=== PATIENT | female | born 1985 | race Caucasian/White ===

== ENCOUNTER 2021-08-10 11:57 | Inpatient (IN) ==
[2021-08-10 13:36] LABS: Mean Corpuscular Hgb Conc 34.8 g/dL (32-36)
[2021-08-10 13:44] LABS: Hematocrit (blood only) 36.8 % (37-47); Hemoglobin 12.8 g/dL (12.0-16.0); Mean Corpuscular Hemoglobin 32.2 pg (25-34); Mean Corpuscular Volume 92.5 fL (80-100); RDW Coefficient of Variation 13.1 % (11.5-14.5); RDW Standard Deviation 44.2 fL (36.4-46.3); Red Blood Count 3.98 M/uL (4.2-5.4); White Blood Count 6.27 K/uL (4.8-10.8)
[2021-08-10] MEDS ORDERED: OXYTOCIN 30 UNITS/500 ML BAG IV PRN ×2 (13:47)
[2021-08-10 13:53] LABS: Mean Platelet Volume 13.1 fL (7.4-10.4); Platelet Count 137 K/uL (130-400); Platelet Estimate Normal (Normal)
[2021-08-10 13:55] LABS: Albumin Level 2.4 gm/dl (3.4-5.0); BUN Creatinine Ratio 9.3 (10-20); Calcium 8.5 mg/dl (8.5-10.1); Creatinine Clr Calc Pharmacy 86.5 ml/min; Est GFR (African American) 82.5 ml/min; Est GFR (Non-African American) 71.2 ml/min; Potassium 3.9 mmol/L (3.5-5.1)
[2021-08-10 13:58] LABS: Albumin Globulin Ratio 0.7 (0.9-2); Bilirubin,Total 0.3 mg/dl (0.2-1); Globulin 3.4 gm/dl (2.5-4.0); Total Protein 5.8 gm/dl (6.4-8.2)
--- NOTE | 2021-08-10 14:06 | Anesthesiology Consultation ---
Date of Service August 10, 2021 Assessment & Plan Chart Review Chart Review: Acceptable Risk for Surgery, Patient NOT seen in Pre Admission Testing and Acceptable Risk for Labor Epidural Consults Requested none ASA ASA2 Proposed Anesthesia Anesthesia Type: Labor Epidural and CSE History Height/Weight Height: 5 ft 8 in Weight: 82.1 kg Allergies Allergy/AdvReac Type Severity Reaction Status Date / Time No Known Allergies Allergy Verified 08/10/21 13:01 Medications Home Medications Medication Instructions Recorded Confirmed Last Taken loratadine 10 mg tablet (Claritin) 10 mg PO DAILY 08/06/21 08/10/21 08/10/21 09:00 cyanocobalamin (vitamin B-12) 1,000 mcg PO Q OTHER DAY 08/10/21 08/10/21 08/10/21 09:00 1,000 mcg tablet (Vitamin B-12) prenat.vits,ilsa,yln-vrvk-agtuv 1 tab PO DAILY 08/10/21 08/10/21 08/10/21 09:00 Past Medical History Medical History History of chicken pox HPV test positive Vitamin B12 deficiency Exercise / Class Metabolic Activity II 4-5 Yardwork/Stairs/Walk up hill Past Family History Family History Mother Hypertension Early onset Alzheimer's dementia Seizures Grandmother (Maternal) Diabetes Grandfather (Paternal) Myocardial infarction Aunt Cancer of appendix Denies family history of Ovarian cancer Prostate cancer Breast cancer Colorectal cancer Past Surgical History Surgical History History of colposcopy History of repair of ACL Past Anesthesia History No Hx of Anesthesia Complications and No Family Hx of Anesthesia Complications History of PONV No Hx of PONV and No Hx of Motion Sickness Social History Smoking Status: Never smoker Hx Alcohol Use: No Hx Substance Use: No Physical Exam Vital Signs Last Vital Signs Temp 36.9 C 08/10/21 12:22 Pulse 61 08/10/21 13:02 Resp 20 08/10/21 12:22 BP 142/101 H 08/10/21 13:02 Testing Laboratory Results 08/10/21 13:24 08/10/21 13:24
[2021-08-10] MEDS: LACTATED RINGER'S 1,000 ML IV PRN ×2 (15:18→21:02)
--- NOTE | 2021-08-10 16:16 | History & Physical Report ---
Date of Service August 10, 2021 Assessment & Plan (1) PROM (premature rupture of membranes): (2) Gestational hypertension: (3) Elderly primigravida: (4) Velamentous insertion of umbilical cord: Plan: admit, iv, labs. monitor bps, if severe range will plan magnesium sulfate, discussed dx with patient and risks. rec pitocin for induction of labor. answered questions to the best of my ability and to their satisfaction, both pt and partner. agree to proceed with pitocin. Admission and Anticipated Discharge Date Admission Date: August 10, 2021 History of Present Illness Chief Complaint: Leaking fluid since 8am, clear. Primary Care Provider: NO PCP 36yo at 38+wks ega presents to L&D with cc of leaking fluid since 8am and advised to come to L&D for evaluation. Noting cramping as well. On arrival here, bp elevated. Denies angel, visual change, ruq pain. No n/v. +FM. some pink d/c. clear fluid leak with white flecks. PNC c/b 1. ama 2. velamentous cord insertion, growth us followed, aga PNL rh pos, ri, gbs neg OBH: g1 GYNH: nl paps no stds Allergies Allergy/AdvReac Type Severity Reaction Status Date / Time No Known Allergies Allergy Verified 08/10/21 13:01 Home Medications Medication Instructions Recorded Confirmed Type loratadine 10 mg tablet (Claritin) 10 mg PO DAILY 08/06/21 08/10/21 History cyanocobalamin (vitamin B-12) 1,000 mcg PO Q OTHER DAY 08/10/21 08/10/21 History 1,000 mcg tablet (Vitamin B-12) prenat.vits,ilsa,wao-bjma-lmrja 1 tab PO DAILY 08/10/21 08/10/21 History Patient History Medical History History of chicken pox HPV test positive Vitamin B12 deficiency Surgical History History of colposcopy History of repair of ACL Family History Mother Hypertension Early onset Alzheimer's dementia Seizures Grandmother (Maternal) Diabetes Grandfather (Paternal) Myocardial infarction Aunt Cancer of appendix Denies family history of Ovarian cancer Prostate cancer Breast cancer Colorectal cancer Social History (Updated 01/07/21 @ 10:02 by Jane Vasquez RN) Smoking Status: Never smoker Hx Alcohol Use: No Hx Substance Use: No Preferred Language: Nepali Communication Ability: Effective Fire Regulator Required: No Beliefs That Will Affect Care: None marital status: marital status details: Norman Pinedo ([phone] Current Living Situation: Spouse Current Living Situation Comment: current occupational status: employed 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 Other Information That Helps Us Care for You: No Feels Safe at Home: Yes Safety Concerns: Feels Safe At This Time Review of Systems as per Subjective / HPI Physical Exam Constitutional: WD/WN, vitals as above Gastrointestinal (Abdomen): soft gravid nt Musculoskeletal: no edema nontender calves Neurologic: grossly normal DTRs +2-+3 patellar, no clonus Psychiatric: A+Ox3, euthymic affect Genitourinary: OB Exam Abdomen: + vertex (by u/s) Manual OB Exam: + cervical dilation 4 cm, + cervical effacement 100%, + station -1 and + amniotic fluid clear, nitrazine positive and ferning present OB Exam Monitor Tracing: + external FHT monitor used, + external uterine monitor used (irreg), + category I and + normal FHT variability Results & Data ([facility]) Vital Signs (Past 12 Hours) Vital Signs Temp Pulse Resp BP 08/10/21 15:24 61 163/102 H 08/10/21 15:08 60 155/98 H 08/10/21 14:39 57 L 152/95 H 08/10/21 13:02 61 142/101 H 08/10/21 12:32 62 152/99 H 08/10/21 12:22 98.4 F 20 08/10/21 12:17 62 164/102 H Coding Level of Care Code None Diagnoses PROM (premature rupture of membranes) O42.90 Gestational hypertension O13.9 Elderly primigravida O09.519 Velamentous insertion of umbilical cord O43.129
[2021-08-10] MEDS ORDERED: MAG SULFATE 4GM BOLUS FROM BAG IV ONE (16:45)
[2021-08-10] MEDS: MAGNESIUM SULFATE / WTR 40 GM/1,000 ML BAG IV SCH (16:55)
[2021-08-10] MEDS ORDERED: LABETALOL HCL IV 5 MG/ML 20ML IV STA ×2 (17:04→19:16)
[2021-08-10] MEDS ORDERED: hydrALAZINE HCL 20 MG/ML VIAL IV STA ×2 (19:24→19:56)
--- NOTE | 2021-08-10 19:28 | Labor Progress Brief Note ---
Date of Service August 10, 2021 Subjective pt with pain with ctx. denies angel Assessment & Plan (1) PROM (premature rupture of membranes): (2) Gestational hypertension: (3) Elderly primigravida: Plan: mag was started earlier for severe features, creat 1.02 and bps have been elevated as well, 20mg iv labetalol prev given, pulse hovers at 45-60. will add hydralazine next. good progress. c/w pit. fhts categ 1 Admission and Anticipated Discharge Date Admission Date: August 10, 2021 Physical Exam Constitutional: WD/WN, vitals as above Genitourinary: Manual OB Exam: + cervical dilation 7 cm, + cervical effacement 100% and + station 0 OB Exam Monitor Tracing: + external FHT monitor used, + external uterine monitor used (q2-3 ), + category I and + normal FHT variability Results & Data ([facility]) Vital Signs (Past 12 Hours) Vital Signs Temp Pulse Resp BP Pulse Ox 08/10/21 19:20 64 163/110 H 96 08/10/21 19:15 59 L 148/106 H 95 08/10/21 19:12 59 L 170/108 H 08/10/21 19:10 57 L 98 08/10/21 19:05 53 L 160/97 H 96 08/10/21 19:00 64 149/98 H 97 08/10/21 18:59 62 94 08/10/21 18:55 69 157/105 H 97 08/10/21 18:54 75 94 08/10/21 18:50 69 95 08/10/21 18:45 62 96 08/10/21 18:40 65 96 08/10/21 18:35 66 95 08/10/21 18:30 97.9 F 64 20 95 08/10/21 18:25 67 98 08/10/21 18:24 71 168/98 H 08/10/21 18:20 70 100 08/10/21 18:15 61 100 08/10/21 18:10 62 167/103 H 97 08/10/21 18:05 65 94 08/10/21 18:00 68 20 98 08/10/21 17:55 71 97 08/10/21 17:54 59 L 149/97 H 08/10/21 17:50 63 98 08/10/21 17:45 57 L 97 08/10/21 17:43 59 L 94 08/10/21 17:40 56 L 98 08/10/21 17:39 60 155/96 H 08/10/21 17:35 59 L 100 08/10/21 17:30 55 L 98 08/10/21 17:26 65 152/95 H 08/10/21 17:25 64 98 08/10/21 17:21 69 94 08/10/21 17:20 62 96 08/10/21 17:17 57 L 148/99 H 08/10/21 17:15 57 L 96 08/10/21 17:10 65 97 08/10/21 17:09 54 L 161/100 H 08/10/21 17:07 59 L 94 08/10/21 17:05 64 96 08/10/21 17:03 63 161/95 H 08/10/21 17:00 58 L 95 08/10/21 16:57 60 190/113 H 08/10/21 16:55 20 08/10/21 16:40 97.7 F 08/10/21 16:25 76 182/92 H 08/10/21 16:21 58 L 146/87 H 08/10/21 15:24 61 163/102 H 08/10/21 15:08 60 155/98 H 08/10/21 14:39 57 L 152/95 H 08/10/21 14:30 98.1 F 20 08/10/21 13:02 61 142/101 H 08/10/21 12:32 62 152/99 H 08/10/21 12:22 98.4 F 08/10/21 12:17 62 164/102 H Coding Level of Care Code None Diagnoses PROM (premature rupture of membranes) O42.90 Gestational hypertension O13.9 Elderly primigravida O09.519
[2021-08-10] MEDS ORDERED: hydrALAZINE HCL 20 MG/ML VIAL IV ONE (20:17)
[2021-08-10] MEDS ORDERED: ePHEDrine sulfate 50 MG/ML AMP ONE (20:27)
[2021-08-10] MEDS ORDERED: SODIUM CHLORIDE 0.9% INJ 10 ML VIAL ONE (20:27)
[2021-08-10] MEDS ORDERED: BUPIVACAINE 0.25% 30 ML VIAL ONE (20:27)
[2021-08-10] MEDS ORDERED: fentaNYL citrate 100 MCG/2 ML VIAL ONE (20:27)
[2021-08-10] MEDS ORDERED: fentaNYL 2MCG/ML ROPIVACAINE 1.25MG/ML 100 ML BAG EPI ONE (20:27)
[2021-08-10 20:48] LABS: Hemoglobin 14.8 g/dL (12.0-16.0)
[2021-08-10 21:04] LABS: Platelet Count 166 K/uL (130-400)
[2021-08-10] MEDS ORDERED: diphenhydrAMINE 50 MG/ML VIAL IV PRN (21:57)
[2021-08-10] MEDS ORDERED: fentaNYL 2MCG/ML ROPIVACAINE 1.25MG/ML 100 ML BAG EPI PRN (21:57)
[2021-08-10] MEDS ORDERED: NALBUPHINE HCL INJ 10 MG/ML AMP IV PRN (21:57)
[2021-08-10] MEDS ORDERED: NALOXONE HCL 1 MG in SODIUM CHLORIDE 0.9% 1000ML 1,000 ML IV PRN (21:57)
[2021-08-10] MEDS ORDERED: NALOXONE HCL 0.4 MG/1 ML VIAL/CARP IV PRN (21:57)
[2021-08-10] MEDS ORDERED: ePHEDrine sulfate 50 MG/ML AMP IV PRN (21:57)
--- NOTE | 2021-08-11 | Labor Progress Brief Note ---
Date of Service August 10, 2021 Subjective pt resting with epidural. Assessment & Plan (1) PROM (premature rupture of membranes): (2) Gestational hypertension: (3) Velamentous insertion of umbilical cord: (4) Elderly primigravida: Plan: suspect bp related to categ 2 tracing, ivf bolusing. will watch. fhts now recovered to baseline. will allow for inutero resuscitation and then consider restart pit at half and resume pushing in coming hour. pt and partner aware of plan. discussed fhts changes that necessitated above actions. if fetus tolerates will hold off on pushing for now but will begin 2nd stage soon. they are agreeable. Admission and Anticipated Discharge Date Admission Date: August 10, 2021 Physical Exam Constitutional: WD/WN, vitals as above (BP notably much lower than previous) Genitourinary: Manual OB Exam: + cervical dilation 10 cm, + cervical effacement 100% and + station + 2 OB Exam Monitor Tracing: + external FHT monitor used, + external uterine monitor used (q2-3 pit at 13), + normal FHT variability and + variable decelerations pushed x 1, cephalic at +2. variable decels noted. reposition, ivf bolus and then ultimately stopped pit. fhts recovered to 120 Results & Data ([facility]) Vital Signs (Past 12 Hours) Vital Signs Temp Pulse Resp BP Pulse Ox 08/10/21 23:50 85 96 08/10/21 23:46 81 109/58 L 08/10/21 23:45 71 97 08/10/21 23:40 92 H 97 08/10/21 23:35 87 96 08/10/21 23:30 81 96 08/10/21 23:27 82 130/62 08/10/21 23:25 83 97 08/10/21 23:20 83 97 08/10/21 23:15 82 97 08/10/21 23:13 81 133/63 08/10/21 23:10 81 97 08/10/21 23:05 83 98 08/10/21 23:00 84 98 08/10/21 22:57 83 123/64 08/10/21 22:55 88 18 98 08/10/21 22:50 83 97 08/10/21 22:45 86 97 08/10/21 22:41 81 133/68 08/10/21 22:40 80 98 08/10/21 22:35 86 97 08/10/21 22:30 85 18 97 08/10/21 22:28 89 127/60 08/10/21 22:25 85 97 08/10/21 22:20 86 97 08/10/21 22:17 16 08/10/21 22:15 84 98 08/10/21 22:10 81 117/66 98 08/10/21 22:05 93 H 121/74 96 08/10/21 22:01 85 130/69 08/10/21 22:00 87 16 98 08/10/21 21:56 86 131/69 08/10/21 21:55 89 98 08/10/21 21:50 90 131/77 96 08/10/21 21:46 86 138/73 08/10/21 21:45 87 16 97 08/10/21 21:40 86 135/77 95 08/10/21 21:35 89 97 08/10/21 21:34 86 137/98 08/10/21 21:30 97.9 F 95 H 18 98 08/10/21 21:26 96 H 140/81 08/10/21 21:25 100 H 20 97 08/10/21 21:21 85 160/76 H 08/10/21 21:20 88 20 95 08/10/21 21:15 86 175/103 H 95 08/10/21 21:10 81 95 08/10/21 21:05 87 167/98 H 96 08/10/21 21:01 72 169/93 H 08/10/21 21:00 82 96 08/10/21 20:55 81 164/99 H 97 08/10/21 20:50 82 97 08/10/21 20:47 72 162/95 H 08/10/21 20:45 81 96 08/10/21 20:42 82 152/91 H 08/10/21 20:40 69 97 08/10/21 20:36 74 159/96 H 08/10/21 20:35 81 96 08/10/21 20:30 68 16 156/95 H 96 08/10/21 20:26 79 160/96 H 08/10/21 20:25 67 97 08/10/21 20:20 80 138/96 97 08/10/21 20:16 77 164/95 H 08/10/21 20:15 70 98 08/10/21 20:10 75 151/108 H 96 08/10/21 20:06 68 162/107 H 08/10/21 20:05 69 96 08/10/21 20:00 70 180/93 H 96 08/10/21 19:58 70 94 08/10/21 19:56 61 176/100 H 08/10/21 19:55 75 96 08/10/21 19:51 65 166/105 H 08/10/21 19:50 58 L 96 08/10/21 19:46 52 L 174/100 H 08/10/21 19:45 51 L 99 08/10/21 19:40 53 L 162/104 H 95 08/10/21 19:39 61 179/105 H 08/10/21 19:35 59 L 97 08/10/21 19:30 64 174/104 H 99 08/10/21 19:27 55 L 171/106 H 08/10/21 19:25 97.5 F L 49 L 18 98 08/10/21 19:20 64 163/110 H 96 08/10/21 19:15 59 L 148/106 H 95 08/10/21 19:12 59 L 170/108 H 08/10/21 19:10 57 L 98 08/10/21 19:05 53 L 160/97 H 96 08/10/21 19:00 64 149/98 H 97 08/10/21 18:59 62 94 08/10/21 18:55 69 157/105 H 97 08/10/21 18:54 75 94 08/10/21 18:50 69 95 08/10/21 18:45 62 96 08/10/21 18:40 65 96 08/10/21 18:35 66 95 08/10/21 18:30 97.9 F 64 20 95 08/10/21 18:25 67 98 08/10/21 18:24 71 168/98 H 08/10/21 18:20 70 100 08/10/21 18:15 61 100 08/10/21 18:10 62 167/103 H 97 08/10/21 18:05 65 94 08/10/21 18:00 68 20 98 08/10/21 17:55 71 97 08/10/21 17:54 59 L 149/97 H 08/10/21 17:50 63 98 08/10/21 17:45 57 L 97 08/10/21 17:43 59 L 94 08/10/21 17:40 56 L 98 08/10/21 17:39 60 155/96 H 08/10/21 17:35 59 L 100 08/10/21 17:30 55 L 98 08/10/21 17:26 65 152/95 H 08/10/21 17:25 64 98 08/10/21 17:21 69 94 08/10/21 17:20 62 96 08/10/21 17:17 57 L 148/99 H 08/10/21 17:15 57 L 96 08/10/21 17:10 65 97 08/10/21 17:09 54 L 161/100 H 08/10/21 17:07 59 L 94 08/10/21 17:05 64 96 08/10/21 17:03 63 161/95 H 08/10/21 17:00 58 L 95 08/10/21 16:57 60 190/113 H 08/10/21 16:55 20 08/10/21 16:40 97.7 F 08/10/21 16:25 76 182/92 H 08/10/21 16:21 58 L 146/87 H 08/10/21 15:24 61 163/102 H 08/10/21 15:08 60 155/98 H 08/10/21 14:39 57 L 152/95 H 08/10/21 14:30 98.1 F 08/10/21 13:02 61 142/101 H 08/10/21 12:32 62 152/99 H 08/10/21 12:22 98.4 F 20 08/10/21 12:17 62 164/102 H Coding Level of Care Code None Diagnoses PROM (premature rupture of membranes) O42.90 Gestational hypertension O13.9 Velamentous insertion of umbilical cord O43.129 Elderly primigravida O09.519
[2021-08-11] MEDS: LACTATED RINGER'S 1,000 ML IV PRN (00:15)
--- NOTE | 2021-08-11 03:02 | Labor Progress Brief Note ---
Date of Service August 11, 2021 Subjective called by nursing to assess pt pushing. she is tired at times. on arrival pt pushing. Assessment & Plan (1) Elderly primigravida: (2) Velamentous insertion of umbilical cord: (3) PROM (premature rupture of membranes): (4) Gestational hypertension: Plan: pushing effectively most of the time. will try position change with pushing. discussed with patient possible option to give assistance but if able to keep pushing effectively, can continue as some progress from my exam earlier evident but also explained that molding noted so hopefull changing positions, now trying knee chest pushing, will help. fhts categ 2. Admission and Anticipated Discharge Date Admission Date: August 10, 2021 Physical Exam Constitutional: WD/WN, vitals as above Genitourinary: Manual OB Exam: + cervical dilation 10 cm, + cervical effacement 100% and + station + 3 (with pushing, some molding) OB Exam Monitor Tracing: + external FHT monitor used (120s variables, spont accels.), + external uterine monitor used (q2-4 pit at 11) and + normal FHT variability Results & Data ([facility]) Vital Signs (Past 12 Hours) Vital Signs Temp Pulse Resp BP Pulse Ox 08/11/21 02:57 104 H 150/101 H 08/11/21 02:56 110 H 94 08/11/21 02:55 115 H 94 08/11/21 02:50 107 H 95 08/11/21 02:45 96 H 95 08/11/21 02:40 92 H 96 08/11/21 02:35 88 94 08/11/21 02:30 95 H 18 96 08/11/21 02:27 105 H 145/94 H 08/11/21 02:25 99 H 96 08/11/21 02:20 92 H 97 08/11/21 02:15 92 H 96 08/11/21 02:13 96 H 156/88 H 08/11/21 02:10 92 H 95 08/11/21 02:05 99 H 96 08/11/21 02:01 98 H 89 L 08/11/21 02:00 97 H 97 08/11/21 01:55 119 H 97 08/11/21 01:50 92 H 96 08/11/21 01:49 106 H 94 08/11/21 01:45 97.9 F 90 20 96 08/11/21 01:41 93 H 140/81 92 08/11/21 01:40 96 H 97 08/11/21 01:35 98 H 95 08/11/21 01:34 97 H 94 08/11/21 01:30 95 H 96 08/11/21 01:26 104 H 136/79 94 08/11/21 01:25 101 H 97 08/11/21 01:20 93 H 96 08/11/21 01:15 112 H 97 08/11/21 01:13 114 H 91 08/11/21 01:12 102 H 125/72 08/11/21 01:10 109 H 96 08/11/21 01:08 111 H 93 08/11/21 01:05 92 H 97 08/11/21 01:00 110 H 94 08/11/21 00:57 93 H 122/81 08/11/21 00:55 94 H 94 08/11/21 00:54 94 H 90 08/11/21 00:50 93 H 96 08/11/21 00:45 95 H 94 08/11/21 00:42 90 137/74 08/11/21 00:40 92 H 97 08/11/21 00:39 102 H 92 08/11/21 00:35 101 H 98 08/11/21 00:30 89 18 95 08/11/21 00:27 88 137/69 08/11/21 00:25 85 96 08/11/21 00:20 88 96 08/11/21 00:15 94 H 97 08/11/21 00:11 88 128/62 08/11/21 00:10 87 97 08/11/21 00:05 89 96 08/11/21 00:00 86 96 08/10/21 23:58 85 142/65 H 08/10/21 23:55 86 96 08/10/21 23:50 85 96 08/10/21 23:46 81 109/58 L 08/10/21 23:45 71 97 08/10/21 23:40 92 H 97 08/10/21 23:35 87 96 08/10/21 23:30 81 96 08/10/21 23:28 97.9 F 18 08/10/21 23:27 82 130/62 08/10/21 23:25 83 97 10/30/21 23:20 83 97 08/10/21 23:15 82 97 08/10/21 23:13 81 133/63 08/10/21 23:10 81 97 08/10/21 23:05 83 98 08/10/21 23:00 84 98 08/10/21 22:57 83 123/64 08/10/21 22:55 88 18 98 08/10/21 22:50 83 97 08/10/21 22:45 86 97 08/10/21 22:41 81 133/68 08/10/21 22:40 80 98 08/10/21 22:35 86 97 08/10/21 22:30 85 18 97 08/10/21 22:28 89 127/60 08/10/21 22:25 85 97 08/10/21 22:20 86 97 08/10/21 22:17 16 08/10/21 22:15 84 98 08/10/21 22:10 81 117/66 98 08/10/21 22:05 93 H 121/74 96 08/10/21 22:01 85 130/69 08/10/21 22:00 87 16 98 08/10/21 21:56 86 131/69 08/10/21 21:55 89 98 08/10/21 21:50 90 131/77 96 08/10/21 21:46 86 138/73 08/10/21 21:45 87 16 97 08/10/21 21:40 86 135/77 95 08/10/21 21:35 89 97 08/10/21 21:34 86 137/98 08/10/21 21:30 97.9 F 95 H 18 98 08/10/21 21:26 96 H 140/81 08/10/21 21:25 100 H 20 97 08/10/21 21:21 85 160/76 H 08/10/21 21:20 88 20 95 08/10/21 21:15 86 175/103 H 95 08/10/21 21:10 81 95 08/10/21 21:05 87 167/98 H 96 08/10/21 21:01 72 169/93 H 08/10/21 21:00 82 96 08/10/21 20:55 81 164/99 H 97 08/10/21 20:50 82 97 08/10/21 20:47 72 162/95 H 08/10/21 20:45 81 96 08/10/21 20:42 82 152/91 H 08/10/21 20:40 69 97 08/10/21 20:36 74 159/96 H 08/10/21 20:35 81 96 08/10/21 20:30 68 16 156/95 H 96 08/10/21 20:26 79 160/96 H 08/10/21 20:25 67 97 08/10/21 20:20 80 138/96 97 08/10/21 20:16 77 164/95 H 08/10/21 20:15 70 98 08/10/21 20:10 75 151/108 H 96 08/10/21 20:06 68 162/107 H 08/10/21 20:05 69 96 08/10/21 20:00 70 180/93 H 96 08/10/21 19:58 70 94 08/10/21 19:56 61 176/100 H 08/10/21 19:55 75 96 08/10/21 19:51 65 166/105 H 08/10/21 19:50 58 L 96 08/10/21 19:46 52 L 174/100 H 08/10/21 19:45 51 L 99 08/10/21 19:40 53 L 162/104 H 95 08/10/21 19:39 61 179/105 H 08/10/21 19:35 59 L 97 08/10/21 19:30 64 174/104 H 99 08/10/21 19:27 55 L 171/106 H 08/10/21 19:25 97.5 F L 49 L 18 98 08/10/21 19:20 64 163/110 H 96 08/10/21 19:15 59 L 148/106 H 95 08/10/21 19:12 59 L 170/108 H 08/10/21 19:10 57 L 98 08/10/21 19:05 53 L 160/97 H 96 08/10/21 19:00 64 149/98 H 97 08/10/21 18:59 62 94 08/10/21 18:55 69 157/105 H 97 08/10/21 18:54 75 94 08/10/21 18:50 69 95 08/10/21 18:45 62 96 08/10/21 18:40 65 96 08/10/21 18:35 66 95 08/10/21 18:30 97.9 F 64 20 95 08/10/21 18:25 67 98 08/10/21 18:24 71 168/98 H 08/10/21 18:20 70 100 08/10/21 18:15 61 100 08/10/21 18:10 62 167/103 H 97 08/10/21 18:05 65 94 08/10/21 18:00 68 20 98 08/10/21 17:55 71 97 08/10/21 17:54 59 L 149/97 H 08/10/21 17:50 63 98 08/10/21 17:45 57 L 97 08/10/21 17:43 59 L 94 08/10/21 17:40 56 L 98 08/10/21 17:39 60 155/96 H 08/10/21 17:35 59 L 100 08/10/21 17:30 55 L 98 08/10/21 17:26 65 152/95 H 08/10/21 17:25 64 98 08/10/21 17:21 69 94 08/10/21 17:20 62 96 08/10/21 17:17 57 L 148/99 H 08/10/21 17:15 57 L 96 08/10/21 17:10 65 97 08/10/21 17:09 54 L 161/100 H 08/10/21 17:07 59 L 94 08/10/21 17:05 64 96 08/10/21 17:03 63 161/95 H 08/10/21 17:00 58 L 95 08/10/21 16:57 60 190/113 H 08/10/21 16:55 20 08/10/21 16:40 97.7 F 20 08/10/21 16:25 76 182/92 H 08/10/21 16:21 58 L 146/87 H 08/10/21 15:24 61 163/102 H 08/10/21 15:08 60 155/98 H Coding Level of Care Code None Diagnoses Elderly primigravida O09.519 Velamentous insertion of umbilical cord O43.129 PROM (premature rupture of membranes) O42.90 Gestational hypertension O13.9
[2021-08-11] MEDS ORDERED: MINERAL OIL 30 ML UDC ONE (03:54)
--- NOTE | 2021-08-11 04:38 | Delivery Summary ---
Vaginal Delivery Summary Date of Service August 11, 2021 Vaginal Delivery Summary and 2nd Degree LAC The patient dilated to complete and pushed to deliver a viable male infant Apgars 7 and 9 via over 2nd degree perineal laceration. Meconium noted at delivery. Mouth and nose bulb suctioned at perineum. Shoulders and body delivered with ease. was crying at . Cord clamped at 30 seconds of life and infant to maternal abdomen where the cord was then doubly clamped and cut. Placenta delivered spontaneously and intact, three-vessel cord. Hemostasis achieved with dilute pitocin and uterine massage and drainage of the bladder for approximately 200 cc under sterile conditions. Laceration repaired in usual fashion with 3-0 vicryl. Cord blood and cord gases obtained. Cervix and sulci intact. EBL 300 cc. Mother and baby stable recovery. Continue with magnesium infusion. Treat blood pressures as needed. Hurd catheter placed under sterile conditions for urine output monitoring. [facility] [place] [facility] [place] Vaginal Delivery Codes: 83963 global code for the antepartum, delivery, and post- Delivery Type Details: and 2nd Degree LAC
[2021-08-11] MEDS ORDERED: oxyCODONE/ACETAMINOPHEN 5mg/325mg TAB PO PRN (04:49)
[2021-08-11] MEDS ORDERED: SUPERCREAM 0.870% 15 GM JAR EXT PRN (04:49)
[2021-08-11] MEDS ORDERED: ACETAMINOPHEN 325 MG TAB PO PRN (04:49)
[2021-08-11] MEDS ORDERED: OXYTOCIN 30 UNITS/500 ML BAG IV PRN (04:49)
[2021-08-11] MEDS ORDERED: DIPHTHERIA/TETANUS/PERTUSSIS 0.5 ML SYR/VIAL IM ONE (04:49)
[2021-08-11] MEDS ORDERED: BENZOCAINE 20% AER SPR 82.5 GM CAN EXT PRN (04:49)
[2021-08-11] MEDS ORDERED: HYDROCORTISONE ACETATE 25 MG SUPP PR PRN (04:49)
[2021-08-11 04:52] LABS: Base Excess Cord Venous Blood -8.5 mEq/L (-7.7-1.9); Cord Venous Blood HCO3 20 mmol/L (18.4-26.8); Cord Venous Blood PCO2 53 mmHg (30.4-57.2); Cord Venous Blood PO2 22 mmHg (14.1-43.3)
[2021-08-11 04:53] LABS: Base Excess Cord Arterial Bld -10.5 mEq/L (-9-1.8); CO2 Cord Arterial Blood 60 mmHg (39.1-73.5); HCO3 Cord Arterial Blood 20 mmol/L (19.7-28.5); PO2 Cord Arterial Blood 19 mmHg (4.1-31.7); pH Cord Arterial Blood 7.13 (7.1-7.38)
[2021-08-11 04:55] LABS: O2 Saturation Cord Venous Bld < 60.0 % (<68)
[2021-08-11 04:56] LABS: Oxygen Sat Cord Arterial Blood < 60.0 % (<60)
[2021-08-11] MEDS: OXYTOCIN 20 UNITS in LACTATED RINGER'S 1,000 ML IV SCH ×2 (05:03→16:16)
[2021-08-11] MEDS ORDERED: hydrALAZINE HCL 20 MG/ML VIAL IV STA (06:19)
[2021-08-11] MEDS ORDERED: hydrALAZINE HCL 20 MG/ML VIAL ONE (06:28)
[2021-08-11] MEDS ORDERED: LABETALOL HCL 100 MG TAB PO SCH (07:20)
[2021-08-11] MEDS: MAGNESIUM SULFATE / WTR 40 GM/1,000 ML BAG IV SCH (07:42)
--- NOTE | 2021-08-11 08:08 | Anesthesia Procedure Note ---
Date of Service August 11, 2021 Anesthesia Post Epidural Note Vital Signs Vital Signs: Temp Pulse Resp BP Pulse Ox 36.6 C 87 16 156/98 H 97 08/11/21 06:12 08/11/21 08:06 08/11/21 06:12 08/11/21 07:43 08/11/21 08:06 Pain Intensity Bilateral Lower Abdomen: Pain Intensity: 0 Notes Mental Status: alert / awake / arousable Nausea / Vomiting: adequately controlled Pain: adequately controlled Airway Patency, RR, SpO2: stable & adequate BP & HR: stable & adequate Hydration State: stable & adequate Neuraxial Anesthesia: was administered and sensory block is resolving Anesthetic Complications: no major complications apparent Epidural: Removed without complications and With tip intact
[2021-08-11 12:53] LABS: Hematocrit (blood only) 39.1 % (37-47); Hemoglobin 13.9 g/dL (12.0-16.0); Mean Corpuscular Hemoglobin 32.6 pg (25-34); Mean Corpuscular Hgb Conc 35.5 g/dL (32-36); Mean Corpuscular Volume 91.8 fL (80-100); Mean Platelet Volume 13.1 fL (7.4-10.4); Platelet Count 174 K/uL (130-400); RDW Coefficient of Variation 13.4 % (11.5-14.5); RDW Standard Deviation 44.3 fL (36.4-46.3); Red Blood Count 4.26 M/uL (4.2-5.4); White Blood Count 15.44 K/uL (4.8-10.8)
[2021-08-11] MEDS: PRENATAL VITAMIN 1 TAB PO SCH (12:57)
[2021-08-11] MEDS: DOCUSATE SODIUM 100 MG CAP PO SCH ×2 (12:57→21:21)
[2021-08-11] MEDS: LORATADINE 10 MG TAB PO SCH (12:57)
[2021-08-11 13:19] LABS: BUN Creatinine Ratio 9.2 (10-20); Bilirubin,Total 0.4 mg/dl (0.2-1); Calcium 7.4 mg/dl (8.5-10.1); Total Protein 5.8 gm/dl (6.4-8.2)
[2021-08-11 13:25] LABS: Albumin Globulin Ratio 0.7 (0.9-2); Albumin Level 2.4 gm/dl (3.4-5.0); Creatinine Clr Calc Pharmacy 79.5 ml/min; Est GFR (African American) 74.5 ml/min; Est GFR (Non-African American) 64.3 ml/min; Globulin 3.4 gm/dl (2.5-4.0); Potassium 3.9 mmol/L (3.5-5.1)
[2021-08-11] MEDS ORDERED: LABETALOL HCL 100 MG TAB PO ONE ×2 (16:09→21:07)
[2021-08-11] MEDS: IBUPROFEN 600 MG TAB PO PRN (16:18)
[2021-08-11] MEDS ORDERED: LABETALOL HCL 200 MG TAB PO SCH (21:00)
[2021-08-11] MEDS ORDERED: LABETALOL HCL 100 MG TAB ONE (21:14)
[2021-08-12] MEDS: MAGNESIUM SULFATE / WTR 40 GM/1,000 ML BAG IV SCH (00:01)
--- NOTE | 2021-08-12 04:35 | Obstetrical Progress Note ---
Date of Service August 12, 2021 Assessment & Plan (1) Pre-eclampsia, severe: (2) examination following vaginal delivery: stable, doing well. given labs prior will recheck this am. urine output excellent 350-600cc per hour. mag to stop now, andino out. move to floor. management of her bps has been difficult, occasionally sbp doris elevated. given her pulse do not have room to increase labetalol, will see how early am values look and may need to add or change course and consider nifedipine. pt aware. she has a large component of anxiety which i think may be contributing to elevated sbp. still, cannot deny preeclampsi with severe features. parameters to complain reviewed with patient, ie angel or visual change. answered her questions regarding laceration and expected healing and LOS in hospital. Day #:: 1 Subjective Voiding: andino catheter in place Diet Tolerance:: regular diet Lochia:: Small Feeding Type:: breast feeding pt has been mostly resting in bed. scds on. mag infusing. denies angel or visual change. no pain issues. Constitutional: + as per Subjective / HPI Physical Exam Constitutional WD/WN, vitals as above Respiratory normal respiratory effort, lungs clear to auscultation Cardiovascular Rate/Rhythm: regular rate and regular rhythm Gastrointestinal (Abdomen) Inspection/Auscultation: abdomen normal to inspection Percussion/Palpation: abdomen soft Fundus firm 2cm down Musculoskeletal nt calves no edema Neurologic grossly normal Psychiatric A+Ox3, euthymic affect Results & Data ([facility]) Vital Signs (Past 12 Hours) Vital Signs Temp Pulse Resp BP Pulse Ox 08/12/21 04:26 52 L 97 08/12/21 04:21 53 L 96 08/12/21 04:16 58 L 97 08/12/21 04:11 55 L 97 08/12/21 04:06 48 L 96 08/12/21 04:01 51 L 96 08/12/21 03:56 71 97 08/12/21 03:51 59 L 98 08/12/21 03:46 56 L 98 08/12/21 03:41 54 L 96 08/12/21 03:36 55 L 97 08/12/21 03:31 66 96 08/12/21 03:26 64 97 08/12/21 03:21 60 96 08/12/21 03:16 59 L 97 08/12/21 03:11 60 96 08/12/21 03:10 18 08/12/21 03:07 56 L 174/96 H 08/12/21 03:06 59 L 97 08/12/21 03:01 59 L 97 08/12/21 02:56 68 97 08/12/21 02:51 62 96 08/12/21 02:46 71 97 08/12/21 02:41 60 97 08/12/21 02:36 68 96 08/12/21 02:31 63 97 08/12/21 02:26 71 96 08/12/21 02:21 62 97 08/12/21 02:16 64 97 08/12/21 02:11 75 96 08/12/21 02:10 97.9 F 18 08/12/21 02:06 64 97 08/12/21 02:01 59 L 97 08/12/21 01:56 58 L 96 08/12/21 01:51 61 96 08/12/21 01:46 57 L 96 08/12/21 01:41 57 L 96 08/12/21 01:36 56 L 96 08/12/21 01:31 52 L 95 08/12/21 01:28 50 L 94 08/12/21 01:26 54 L 96 08/12/21 01:21 49 L 96 08/12/21 01:16 61 96 08/12/21 01:15 54 L 94 08/12/21 01:11 57 L 97 08/12/21 01:10 16 08/12/21 01:07 54 L 122/78 08/12/21 01:06 54 L 94 08/12/21 01:03 55 L 94 08/12/21 01:01 55 L 94 08/12/21 00:56 55 L 94 08/12/21 00:51 53 L 94 08/12/21 00:46 53 L 94 08/12/21 00:42 53 L 94 08/12/21 00:41 53 L 95 08/12/21 00:36 54 L 95 08/12/21 00:31 55 L 96 08/12/21 00:26 53 L 96 08/12/21 00:21 56 L 95 08/12/21 00:16 56 L 97 08/12/21 00:11 55 L 96 08/12/21 00:06 54 L 97 08/12/21 00:05 18 08/12/21 00:01 59 L 97 08/11/21 23:56 61 96 08/11/21 23:51 59 L 97 08/11/21 23:46 61 97 08/11/21 23:44 61 94 08/11/21 23:41 67 97 08/11/21 23:36 63 97 08/11/21 23:31 71 97 08/11/21 23:26 64 97 08/11/21 23:21 64 96 08/11/21 23:16 63 96 08/11/21 23:14 16 08/11/21 23:11 68 96 08/11/21 23:07 63 151/91 H 08/11/21 23:06 65 96 08/11/21 23:01 60 96 08/11/21 22:56 63 96 08/11/21 22:51 55 L 96 08/11/21 22:46 56 L 96 08/11/21 22:45 57 L 94 08/11/21 22:41 56 L 96 08/11/21 22:36 62 96 08/11/21 22:31 59 L 96 08/11/21 22:26 68 97 08/11/21 22:21 63 96 08/11/21 22:20 98.2 F 16 08/11/21 22:12 63 96 08/11/21 22:07 66 96 08/11/21 22:02 71 95 08/11/21 21:57 66 96 08/11/21 21:52 68 96 08/11/21 21:47 65 96 08/11/21 21:42 69 96 08/11/21 21:37 66 96 08/11/21 21:32 69 97 08/11/21 21:27 68 97 08/11/21 21:22 62 97 08/11/21 21:20 98.2 F 18 08/11/21 21:17 62 97 08/11/21 21:12 70 96 08/11/21 21:07 67 97 08/11/21 21:02 64 97 08/11/21 20:57 67 96 08/11/21 20:53 63 171/98 H 08/11/21 20:52 66 96 08/11/21 20:47 64 96 08/11/21 20:42 69 97 08/11/21 20:37 66 96 08/11/21 20:32 73 97 08/11/21 20:27 62 97 08/11/21 20:22 64 97 08/11/21 20:17 67 97 08/11/21 20:14 18 08/11/21 20:12 64 96 08/11/21 20:07 64 97 08/11/21 20:02 64 96 08/11/21 19:57 64 97 08/11/21 19:53 62 165/106 H 08/11/21 19:52 70 97 08/11/21 19:47 70 97 08/11/21 19:42 65 96 08/11/21 19:37 70 97 08/11/21 19:32 63 96 08/11/21 19:27 63 97 08/11/21 19:22 72 98 08/11/21 19:17 70 96 08/11/21 19:13 98.2 F 67 16 150/93 H 08/11/21 19:12 67 97 08/11/21 19:07 69 96 08/11/21 19:02 70 96 08/11/21 18:57 68 96 08/11/21 18:52 73 96 08/11/21 18:47 70 96 08/11/21 18:42 70 96 08/11/21 18:37 70 96 08/11/21 18:32 70 96 08/11/21 18:27 70 96 08/11/21 18:22 74 96 08/11/21 18:17 68 96 08/11/21 18:12 65 97 08/11/21 18:07 68 96 08/11/21 18:02 71 96 08/11/21 18:00 20 08/11/21 17:57 77 96 08/11/21 17:53 70 149/95 H 08/11/21 17:52 71 96 08/11/21 17:47 71 96 08/11/21 17:46 69 155/97 H 08/11/21 17:42 76 96 08/11/21 17:38 77 94 08/11/21 17:37 75 96 08/11/21 17:32 71 96 08/11/21 17:27 69 96 08/11/21 17:22 70 96 08/11/21 17:17 69 96 08/11/21 17:12 74 95 10/31/21 17:07 71 97 08/11/21 17:04 71 152/106 H 08/11/21 17:02 74 96 08/11/21 17:00 20 08/11/21 16:57 81 96 08/11/21 16:53 75 182/97 H 08/11/21 16:52 75 96 08/11/21 16:47 73 97 08/11/21 16:42 74 96 08/11/21 16:37 79 96 08/11/21 16:32 84 97
[2021-08-12] MEDS: IBUPROFEN 600 MG TAB PO PRN (04:42)
[2021-08-12 05:59] LABS: Hematocrit (blood only) 34.7 % (37-47); Hemoglobin 12.2 g/dL (12.0-16.0); Mean Corpuscular Hemoglobin 32.2 pg (25-34); Mean Corpuscular Hgb Conc 35.2 g/dL (32-36); Mean Corpuscular Volume 91.6 fL (80-100); Mean Platelet Volume 12.6 fL (7.4-10.4); Platelet Count 153 K/uL (130-400); RDW Coefficient of Variation 13.2 % (11.5-14.5); RDW Standard Deviation 43.9 fL (36.4-46.3); Red Blood Count 3.79 M/uL (4.2-5.4); White Blood Count 12.24 K/uL (4.8-10.8)
[2021-08-12 06:22] LABS: Alanine Aminotransferase 25 U/L (12-78); Aspartate Aminotransferase 43 U/L (15-37); BUN Creatinine Ratio 13.2 (10-20); Bilirubin Direct < 0.1 mg/dl (0-0.2); Blood Urea Nitrogen 12 mg/dl (7-18); Calcium 6.6 mg/dl (8.5-10.1); Carbon Dioxide 26 mmol/L (21-32); Chloride 94 mmol/L (98-107); Creatinine Clr Calc Pharmacy 99.1 ml/min; Est GFR (African American) 97.3 ml/min; Glucose 101 mg/dl (70-99); Potassium 3.7 mmol/L (3.5-5.1); Sodium 126 mmol/L (136-145)
[2021-08-12 06:25] LABS: Albumin Globulin Ratio 0.7 (0.9-2); Alkaline Phosphatase 98 U/L (45-117); Bilirubin,Total 0.3 mg/dl (0.2-1); Globulin 2.9 gm/dl (2.5-4.0); Total Protein 4.9 gm/dl (6.4-8.2)
[2021-08-12] MEDS: DOCUSATE SODIUM 100 MG CAP PO SCH ×2 (08:20→21:18)
[2021-08-12] MEDS: PRENATAL VITAMIN 1 TAB PO SCH (08:20)
[2021-08-12] MEDS ORDERED: LABETALOL HCL 100 MG TAB ONE (08:55)
[2021-08-12] MEDS: LABETALOL HCL 300 MG TAB PO SCH ×2 (08:58→21:18)
[2021-08-12] MEDS ORDERED: CYANOCOBALAMIN 500 MCG TABLET (VITAMIN B-12) PO SCH ×2 (09:00→09:30)
[2021-08-12] MEDS ORDERED: LORATADINE 10 MG TAB PO SCH (09:00)
[2021-08-12] MEDS ORDERED: Nursing to Pharmacy Communication SCH (09:00)
[2021-08-12] MEDS: LORATADINE 10 MG TAB PO SCH (10:24)
--- NOTE | 2021-08-13 06:39 | Obstetrical Progress Note ---
Date of Service <Opal Rivera DO Last Filed: 08/13/21 06:57> August 13, 2021 Assessment & Plan <Opal Rivera Last Filed: 08/13/21 06:57> (1) Pre-eclampsia, severe: (2) examination following vaginal delivery: 36 yo post op day2 from severe preeclampsia, advanced maternal age, gestational HTN, doing well. -Continue routine post care. -vital signs reviewed and WNL (Tmax 36.7) -Blood Type O+, GBS-, Rubella Immune -Encourage ambulation, monitor and control pain with Motrin, tylenol PRN, resume regular diet, monitor lochia -encourage breast feeding -hemoglobin 12.2 -Patient comfortable with going home, understands she needs to come in this week for a BP check Day #:: 2 <Puja Chaidez, - Last Filed: 08/13/21 07:54> (1) Pre-eclampsia, severe: (2) examination following vaginal delivery: Subjective <Opal Rivera Last Filed: 08/13/21 06:57> Ambulation: ambulating normally Voiding: no voiding problems Passing Gas:: Yes Diet Tolerance:: regular diet Lochia:: Small Feeding Type:: breast feeding Current Pain Level(1-10): 1 (pain well controlled on medication) Review of Systems occasional chills less frequent now Denies fever, sweats Denies shortness of breath, difficulty breathing, chest pain, palpitations, chest pressure. Denies breast pain. Denies dysuria. Denies headache or changes in vision. Physical Exam <Opal Rivera Last Filed: 08/13/21 06:57> General: Alert, oriented. No acute distress. Cardiac: Regular rate and rhythm, no murmurs/rubs/gallops. Respiratory: Clear to auscultation bilaterally a/p, no wheezes/rales/rhonchi. No increased work of breathing. Symmetrical chest rise. No respiratory distress. Abdomen: Soft, nontender, nondistended. Bowel sounds present. Uterus: Uterine fundus firm, palpable 2 cm below umbilicus. Lower Extremities: No lower extremity edema or swelling. No deep calf pain. Papito's negative bilaterally.. Results & Data ([facility]) <Opal Rivera DO - Last Filed: 08/13/21 06:57> Vital Signs (Past 12 Hours) Vital Signs Temp Pulse Resp BP Pulse Ox 08/13/21 03:45 36.7 C 60 16 148/87 H 99 08/12/21 23:50 36.7 C 59 L 17 140/78 96 08/12/21 20:40 36.5 C 58 L 16 150/79 H 98 <Puja Chaidez DO - Last Filed: 08/13/21 07:54> Co-Signing Physician Notes Resident Physician Supervision Note: I was present with Dr. Rivera during the history and exam. I discussed the case with the resident and agree with the findings and plan as documented in the note. Any exceptions or clarifications are listed here: PPD#2 doing well. DC home today. Rx 300mg labetalol sent to pharmacy. Followup in office later this week for BP check. Documented By: Puja Chaidez DO Resident Activity Tracking <Opal Rivera DO - Last Filed: 08/13/21 06:57> Resident Involvement: Resident Care Provided Care Provided: OB Delivery
[2021-08-13] MEDS: DOCUSATE SODIUM 100 MG CAP PO SCH (07:16)
[2021-08-13] MEDS: LORATADINE 10 MG TAB PO SCH (07:16)
[2021-08-13] MEDS: PRENATAL VITAMIN 1 TAB PO SCH (07:17)
[2021-08-13] MEDS: LABETALOL HCL 300 MG TAB PO SCH (08:50)
== END 2021-08-13 15:50 | disposition home or self-care (01) | DRG 807 ==
LOC: OPB 11:57 → 4S1 12:00 → 4S2 08-12 05:10